=== PATIENT | male | born 1960 | race Two or more races ===

== ENCOUNTER 2023-06-08 06:26 | Inpatient (IN) | payer MEDICAID ==
[~2023-06-08] VITALS: Ht 170.2 cm; Wt 122.0 kg
[~2023-06-08 06:26] MED LIST: AMLO1TAB23 PO; CARV6.2551 PO; CLOP75TA28 PO; CYCL-837 PO; ERTU15TA PO; HYDR25TA4 PO; INSU1INJ19 SC; METF-490 PO; OMEP20TA PO; POTA1TAB61 PO; QUET200T4 PO; TAMS-35 PO
[2023-06-08] MEDS: ceFAZolin 2 GM/D5W50ml 50 ML IV ONE (06:36)
[2023-06-08] MEDS ORDERED: PHENYLEPHRINE HCL 10 MG/ML VL IV ONE (06:45)
[2023-06-08] MEDS: ROPIVACAINE 0.5% (5MG/ML) 20ML AMPULE IJ ONE (06:45)
[2023-06-08] MEDS: TRANEXAMIC ACID 20 ML ONE (06:45)
[2023-06-08] MEDS: DexAMETHasone SOD PHOS 4 MG/1ML SDV INJ ONE (06:57)
[2023-06-08] MEDS: BUPIVACAINE 0.25% INJ 50ML VIAL ONE (06:57)
[2023-06-08] MEDS: BUPIVACAINE HCL 50 ML ONE (06:57)
[2023-06-08] MEDS: EPINEPHrine HCL 1 MG/1 ML AMP ONE (07:01)
[2023-06-08] MEDS: ACETAMINOPHEN IV 100 ML IV ONE (07:02)
[2023-06-08] MEDS ORDERED: GLYCOPYRROLATE 0.2 MG/ML 1ML VIAL ONE (07:13)
[2023-06-08] MEDS ORDERED: PROPOFOL 10 MG/ML 20 ML IV ONE ×3 (07:13→09:23)
[2023-06-08] MEDS ORDERED: ONDANSETRON HCL 4 MG/2 ML VIAL ONE (07:14)
[2023-06-08] MEDS ORDERED: DexAMETHasone SOD PHOS 10MG/1ML VIAL INJ ONE (07:14)
[2023-06-08] MEDS ORDERED: LIDOCAINE 1% INJ PF 5ML AMP ONE ×2 (07:14→09:29)
[2023-06-08] MEDS ORDERED: KETOROLAC TROMETH 30 MG/ML 1ML VIAL ONE (07:14)
[2023-06-08] MEDS: GABAPENTIN 400 MG CAP ONE (07:15)
[2023-06-08] MEDS: CELECOXIB 100 MG CAP PO ONE (07:15)
[2023-06-08] MEDS: GABAPENTIN 400 MG CAP PO ONE (07:15)
[2023-06-08] MEDS: ACETAMINOPHEN IV 1000 MG/100ML (10MG/ML) IV ONE ×2 (07:15→14:45)
[2023-06-08] MEDS: CELECOXIB 100 MG CAP ONE (07:15)
[2023-06-08] MEDS: VANCOMYCIN HCL 1000 MG VL ONE (08:08)
[2023-06-08] MEDS ORDERED: fentaNYL CITRATE 100 MCG/2 ML VL ONE (09:25)
[2023-06-08 09:53] VITALS: O2SAT 98
[2023-06-08] MEDS ORDERED: ePHEDrine SULFATE 50 MG/ML AMP IV PRN (10:00)
[2023-06-08] MEDS ORDERED: NALOXONE HCL 0.4 MG/ML VIAL IV PRN (10:00)
[2023-06-08] MEDS ORDERED: FLUMAZENIL 0.1 MG/ML INJ 10ML MDV IV PRN (10:00)
[2023-06-08] MEDS ORDERED: fentaNYL CITRATE 100 MCG/2 ML VL IV PRN (10:00)
[2023-06-08] MEDS ORDERED: hydrALAZINE HCL 20 MG/ML VL IV PRN (10:00)
[2023-06-08] MEDS ORDERED: HYDROmorphone HCL 2 MG/ML VL/or syr IV PRN (10:00)
[2023-06-08] MEDS ORDERED: ONDANSETRON HCL 4 MG/2 ML VIAL IV PRN ×2 (10:00)
[2023-06-08] MEDS ORDERED: LABETALOL HCL 5 MG/ML 4ML SYRINGE IV PRN (10:00)
[2023-06-08] MEDS ORDERED: DEXTROSE (50%) 50ML SYRG IV PRN (10:15)
[2023-06-08] MEDS ORDERED: oxyCODONE HCL 5MG TAB PO PRN (11:30)
[2023-06-08] MEDS: InsuLIN REG 1unit/0.01ml Soln (100units/ml) SC SCH (11:30)
[2023-06-08] MEDS: SODIUM CHLORIDE 0.9% 1,000 ML IV SCH (11:30)
[2023-06-08] MEDS: ACCU-CHEK COMFORT CURVE STRIP VI SCH (11:30)
[2023-06-08] MEDS: ACETAMINOPHEN 325 MG TAB PO SCH (12:00)
[2023-06-08] MEDS ORDERED: ceFAZolin 2 GM/D5W50ml 50 ML IV SCH ×2 (14:00→15:30)
[2023-06-08] MEDS: HYDROmorphone HCL 2 MG/ML VL/or syr ONE (14:26)
[2023-06-08] MEDS: HYDROmorphone HCL 2 MG/ML VL/or syr IV PRN (14:30)
[2023-06-08] MEDS: NICOTINE 14 MG/24HR TOPICAL PATCH TD ONE (14:58)
[2023-06-08] MEDS: CYCLOBENZAPRINE HCL 10 MG TAB PO SCH (15:01)
[2023-06-08] MEDS: PREGABALIN 25 MG CAP PO SCH (16:39)
[2023-06-08] MEDS: ceFAZolin 2 GM/D5W50ml 50 ML IV SCH (16:40)
[2023-06-08] MEDS: TAMSULOSIN HYDROCHLORIDE 0.4 MG CAP PO SCH (16:40)
[2023-06-08] MEDS: metFORMIN HYDROCHLORIDE 500 MG TAB PO SCH (16:43)
[2023-06-08 18:01] VITALS: BP 145/121; PULSE 65; RESP 16; TEMP 97.6; O2SAT 92
[2023-06-08 18:09] VITALS: BP 145/121; PULSE 65; RESP 16; TEMP 97.6; O2SAT 92
[2023-06-08] MEDS: oxyCODONE HCL 5MG TAB PO PRN (19:22)
[2023-06-08] MEDS: QUEtiapine FUMARATE 100 MG TAB PO SCH (21:40)
[2023-06-08] MEDS: CARVEDILOL 3.125 MG TAB PO SCH (21:41)
[2023-06-08 22:00] VITALS: BP 107/70; PULSE 108; RESP 21; TEMP 98.3; O2SAT 94
[2023-06-09 05:00] VITALS: BP 105/49; PULSE 103; RESP 16; TEMP 98; O2SAT 95
[2023-06-09 06:20] LABS: Basophils # (auto) 0 10 ^3/uL (0-0.2); Eosinophils # (auto) 0 10 ^3/uL (0-0.8); Hematocrit 34.3 % (41.0-53.0); Hemoglobin 11.6 g/dL (13.5-17.5); Lymphocytes # (auto) 1.3 10 ^3/uL (0.4-5.4); Lymphocytes % (auto) 11.3 % (10.0-50.0); Mean Corpuscular Hemoglobin 28.9 pg (28.0-32.0); Mean Corpuscular Hgb Conc. 33.9 g/dL (32.0-36.0); Mean Corpuscular Volume 85.4 fL (80.0-100.0); Monocytes # (auto) 0.8 10 ^3/uL (0-1.3); Monocytes % (auto) 7.1 % (0.0-12.0); Neutrophils # (auto) 9.7 10 ^3/uL (1.6-8.6); Neutrophils % (auto) 81.6 % (37.0-80.0); Red Blood Cells 4.01 10^6/uL (4.5-5.90); Red Cell Distribution Width 15.4 % (11.8-14.3); White Blood Cell 11.9 10^3/uL (4.4-10.8)
[2023-06-09 06:25] LABS: Calcium 8.8 mg/dL (8.5-10.1); Chloride 108 mmol/L (98-107); Potassium 3.9 mmol/L (3.5-5.1); Sodium 140 mmol/L (136-145)
[2023-06-09 06:26] LABS: Anion Gap 7 (5-15); Carbon Dioxide 25 mmol/L (20-30)
[2023-06-09 06:31] LABS: BUN/Creatinine Ratio 12.3 (10.0-20.0); Blood Urea Nitrogen 13 mg/dL (9-23); Glucose 156 mg/dL (74-106)
[2023-06-09 08:15] VITALS: BP 111/76; PULSE 103; RESP 19; TEMP 97.8; O2SAT 96
[2023-06-09] MEDS: APIXABAN 2.5 MG TAB PO SCH (09:13)
[2023-06-09] MEDS: POTASSIUM CHL 10 Meq TABLET PO SCH (09:13)
[2023-06-09] MEDS: PANTOPRAZOLE 40 MG TAB PO SCH (09:13)
[2023-06-09] MEDS: NICOTINE 14 MG/24HR TOPICAL PATCH TD SCH (09:15)
[2023-06-09] MEDS: amLODIPine BESYLATE 5 MG TAB PO SCH (09:16)
[2023-06-09] MEDS: hydroCHLOROthiazide 25 MG TAB PO SCH (09:16)
[2023-06-09 11:00] VITALS: BP 111/76; PULSE 103
[2023-06-09 12:15] VITALS: BP_SYST 115; BP_SYST 122; BP_DIAS 75; BP_DIAS 76; PULSE 68; PULSE 96; RESP 18; RESP 19; TEMP 97.8; TEMP 98.8; O2SAT 94; O2SAT 96
[2023-06-09 16:25] VITALS: BP 124/82; PULSE 97; RESP 19; TEMP 97.9; O2SAT 94
[2023-06-09 22:00] VITALS: BP 127/69; PULSE 101; RESP 19; TEMP 99.2; O2SAT 94
[2023-06-10 05:00] VITALS: BP 104/58; PULSE 94; RESP 19; TEMP 98.6; O2SAT 96
[2023-06-10 08:30] VITALS: BP 121/82; PULSE 94; RESP 20; TEMP 98.7; O2SAT 95
[2023-06-10] MEDS ORDERED: HYDR-4902 PO (14:52)
== END 2023-06-10 15:30 | disposition home health service (06) | DRG 324 ==
LOC: SUR 06:26 → OVERFLOW 10:01 → WEST WING 15:36
PROVIDERS: ADMIT Orthopaedic Surgery; ATTEND Orthopaedic Surgery
PROC: 0SRB06Z Replacement of Left Hip Joint with Oxidized Zirconium on Polyethylene Synthetic Substitute, Open Approach (ICD-10-PCS; principal; 2023-06-08 07:21)
DX: M16.12 Unilateral primary osteoarthritis, left hip (principal); Z83.3 Family history of diabetes mellitus
CPT/HCPCS: 36415; 72170; 73502; 80048; 82962; 85025; 86850; 86900; 86901; 97110; 97116; 97163; 97530; G0378; J0131; J0171; J1100; J1815; J1885; J2405; J2704; J3490

== ENCOUNTER 2024-11-23 08:03 | Day surgery (SDC) | payer MEDICAID ==
[2024-11-23] VITALS (8 sets, daily range): BP systolic 103–179; BP diastolic 52–99; PULSE 75–82; RESP 14–19; TEMP 97.8; O2SAT 92–96
[~2024-11-23] VITALS: Ht 170.2 cm; Wt 108.9 kg
[~2024-11-23 08:03] MED LIST changes: +ATOR20TA PO; +POTA-215 PO; -POTA1TAB61 PO; +SEMA2INJ3 SC
[2024-11-23] MEDS: IODIXANOL 320MG/ML 100ML BTL IV ONE (09:02)
[2024-11-23] MEDS: ANGIOMAX 250 MG VIAL IV ONE (09:06)
[2024-11-23] MEDS: VERAPAMIL 2.5MG/ML INJ 2ML VIAL IV ONE (09:06)
[2024-11-23] MEDS: HEPARIN SODIUM (PORCINE) 5000 UNITS/ML 1ML VIAL ONE (09:06)
[2024-11-23] MEDS: SODIUM CHL 0.9% 0 ML ONE (09:07)
[2024-11-23] MEDS: MIDAZOLAM HCL 2MG/2ML 2ml VIAL (1mg/ml) ONE (09:07)
[2024-11-23] MEDS: fentaNYL CITRATE 100 MCG/2 ML VL ONE (09:07)
[2024-11-23] MEDS: LIDOCAINE 2%HCL (LOCAL ANESTH.) INJ 20ML MDV ONE (09:07)
[2024-11-23] MEDS ORDERED: NITROGLYCERIN 50MG/250ML 250 ML IV ONE (09:08)
--- NOTE | 2025-01-12 08:16 | DVHOP2 ---
Operative Report - 2 Report Details Date: 11/23/24 Preop Diagnosis: CAD Postop Diagnosis: Left Heart Cath Surgeon: Ivana Zabala MD Anesthesiologist: Conscious sedation Anesthesia: Mac, Local Consent: The patient was informed of the risks and benefits of the procedure. These include but are not limited to complications of anesthesia, postoperative infection, incomplete relief of symptoms, recurrence of symptoms, damage to blood vessels, nerves and tendons, deep venous thrombosis, pulmonary embolism and possible need for repeat surgery in the future. Complications: No complications Findings: Mild CAD Indications for Surgery: Chest pain Name of Procedure Performed Left heart catheterization. Bilateral cine coronary angiography. Left ventric ulography. Procedure Details Procedure Details: Prior local anesthesia with 2% lidocaine to the right wrist and full informed consent obtained the patient was prepped and draped in usual fashion followed by placement of a six [place] sheath into the right radial artery through which a multipurpose catheter was used for ventriculography and cannulation of both right and left coronary ostia without complications. Hemodynamics aortic blood pressure was 110/70. End-diastolic pressure was 12. There was no gradient across the aortic valve on pullback. Coronary anatomy: The right coronary artery is a medium to large vessel. It has mild plaquing in its proximal mid and distal segments without critical lesions. The PDA in the posterolateral branches are within normal limits. The left main is large and normal. The circumflex is large with two marginals. The mid circumflex has a 50-60% stenosis. The marginals are otherwise free of significant disease. Intermediate vessel is a small vessel it has a mid 60-70% stenosis. Left anterior descending coronary artery is a large vessel it has moderate plaquing. There was a mid 50-60% stenosis of the left anterior descending coronary artery. It appears to be a small discrete plaque. No impairment and filling is noted. Diagonals and septals appeared to be within normal limits. Ventriculography in the CISNEROS projection shows normal EF. EF of about 55%. No wall motion abnormalities discernible. Impression: Normal left ventricular end-diastolic pressure at rest with normal ejection fraction. Mild CAD as noted. Recommendations: Continue medical therapy and risk factor modification to continue. Condition Good Disposition Home Date of Service: Nov 23, 2024 Billing Provider: IVANA ZABALA Sr., MD Cardiology Common Codes: 64109-TFZXLTP INP/OBS CARE (High) Cardiology Procedure Codes: 62542-MVLZ HEART CATH W/INTRA INJ IVANA ZABALA Sr., MD Jan 12, 2025 08:16
== END 2024-11-23 12:28 | disposition home or self-care (01) ==
LOC: CATH 08:03
PROVIDERS: ATTEND Internal Medicine
DX: I25.119 Atherosclerotic heart disease of native coronary artery with unspecified angina pectoris (principal); R07.89 Other chest pain; E11.65 Type 2 diabetes mellitus with hyperglycemia; G47.00 Insomnia, unspecified; E11.40 Type 2 diabetes mellitus with diabetic neuropathy, unspecified; E78.5 Hyperlipidemia, unspecified; F33.9 Major depressive disorder, recurrent, unspecified; I10 Essential (primary) hypertension; F17.210 Nicotine dependence, cigarettes, uncomplicated; E66.01 Morbid (severe) obesity due to excess calories; Z68.37 Body mass index [BMI] 37.0-37.9, adult
CPT/HCPCS: 93458; C1769; C1894; J1644; J2250; J3010; J7030; Q9967; 99152